=== PATIENT | female | born 1980 | race African-American/Black ===

== ENCOUNTER 2022-11-26 01:34 | Inpatient (IN) | payer BC, OTHER ==
[2022-11-26 04:08] VITALS: BMI 35.7
[2022-11-26] MEDS ORDERED: Dextrose 5% in Water 1,000 ML IV PRN (04:58)
[2022-11-26] MEDS ORDERED: Glucagon 1 MG/ML KIT IM PRN (04:58)
[2022-11-26] MEDS ORDERED: Ipratropium/Albuterol 3 ML NEB NEB PRN (04:58)
[2022-11-26] MEDS ORDERED: Dextrose 50% Abboject 50 ML SYRINGE SLOW IVP PRN (04:58)
[2022-11-26] MEDS ORDERED: Morphine 2 MG/ML VIAL SLOW IVP PRN (04:58)
[2022-11-26] MEDS ORDERED: hydrALAZINE 20 MG/ML VIAL SLOW IVP PRN (04:58)
[2022-11-26] MEDS: Sodium Chloride 0.9% 1,000 ML IV SCH ×3 (05:34→21:26)
[2022-11-26] MEDS: Acetaminophen 325 MG TAB PO SCH ×3 (05:40→18:34)
[2022-11-26] MEDS ORDERED: TETANUS, DIPHTHERIA TOX,ADULT (TDVAX) 0.5 ML VIAL IM ONE (06:00)
[2022-11-26 08:51] LABS: #Basophils 0.1 thou/uL (0.0-0.2); #Neutrophils 8.1 thou/uL (1.40-6.50); %Basophils 0.6 % (0.0-1.0); %Eosinophils 0.2 % (0.0-10.0); %Monocytes 8.1 % (0.0-10.0); %Neutrophils 63.9 % (42.0-75.0); Hematocrit 32.6 % (36.0-47.0); Hemoglobin 11.7 g/dL (12.0-16.0); Mean Corpuscular HGB CONC 35.9 g/dL (32.0-36.0); Mean Corpuscular Volume 80.9 fl (78.0-98.0); Mean Platelet Volume 9.2 fL (7.4-10.4); Platelet Count 262 10x3/uL (130-400); RBC Distribution Width 19.3 % (11.5-14.5); Red Blood Cell (RBC) Count 4.03 mill/uL (4.20-5.40); White Blood Cell (WBC) Count 12.6 10x3/uL (4.8-10.8)
[2022-11-26 09:12] LABS: Anion Gap 14 mmol/L (10-20); BUN (Urea Nitrogen) 10 mg/dL (7.0-18.7); Calc. Creatinine Clearance 166 mL/min (70-130); Calcium 7.9 mg/dL (7.8-10.44); Carbon Dioxide 19 mmol/L (22-29); Chloride 111 mmol/L (98-107); Estimated GFR 95; Glucose 83 mg/dL (70-105); Magnesium 1.6 mg/dL (1.6-2.6); Phosphorus 3.2 mg/dL (2.3-4.7); Potassium 3.6 mmol/L (3.5-5.1); Sodium 140 mmol/L (136-145)
[2022-11-26 09:18] LABS: INR-International Normal Ratio 1.2; PTT 26.5 sec (22.9-36.1); Prothrombin Time 15.7 sec (12.0-14.7)
[2022-11-26] MEDS: Ondansetron ODT 4 MG TAB PO PRN ×3 (09:28→21:26)
[2022-11-26] MEDS: Famotidine 20 MG TAB PO SCH ×2 (09:28→20:19)
[2022-11-26] MEDS: traMADol HCl 50 MG TAB PO PRN ×3 (09:28→21:25)
[2022-11-27] MEDS: Acetaminophen 325 MG TAB PO SCH ×3 (00:45→11:12)
[2022-11-27] MEDS: traMADol HCl 50 MG TAB PO PRN ×3 (03:19→15:37)
[2022-11-27 06:38] LABS: Phosphorus 2.2 mg/dL (2.3-4.7)
[2022-11-27] MEDS: Sodium Chloride 0.9% 1,000 ML IV SCH ×2 (06:39→15:38)
[2022-11-27] MEDS: Famotidine 20 MG TAB PO SCH (08:29)
[2022-11-27] MEDS: Ondansetron ODT 4 MG TAB PO PRN (09:25)
[2022-11-27 17:07] VITALS: BP 153/54; TEMP 98.4
== END 2022-11-27 17:25 | disposition home or self-care (01) | DRG 206 ==
LOC: IMCU/EMU 03:17 → OBSVTOIN 04:58 → SURG A 19:32
PROVIDERS: ADMIT Surgery; ATTEND Surgery
DX: S27.321A Contusion of lung, unilateral, initial encounter (principal); R04.2 Hemoptysis; V89.0XXA Person injured in unspecified motor-vehicle accident, nontraffic, initial encounter; K76.0 Fatty (change of) liver, not elsewhere classified; Z98.890 Other specified postprocedural states; S62.314A Displaced fracture of base of fourth metacarpal bone, right hand, initial encounter for closed fracture; I95.9 Hypotension, unspecified
CPT/HCPCS: 36415; 80048; 83735; 84100; 85025; 85610; 85730; 86850; 86900; 86901; 90714; J2272; J7050; Q0162

== ENCOUNTER 2024-10-29 12:21 | Emergency (ER) | payer BC, OTHER ==
[~2024-10-29 12:21] MED LIST: Iopamidol 370 76% 100 ML VIAL ONE
[2024-10-29] MEDS ORDERED: Orphenadrine Citrate 60 MG/2 ML VIAL ONE (12:55)
[2024-10-29 13:10] LABS: #Basophils 0.05 10x3/uL (0.0-0.2); #Eosinophils 0.13 10x3/uL (0.0-0.7); #Monocytes 0.51 10x3/uL (0.11-0.59); #Neutrophils 4.98 10x3/uL (1.40-6.50); %Basophils 0.6 % (0.0-1.0); %Eosinophils 1.6 % (0.0-10.0); %Lymphocytes 28.6 % (21.0-51.0); %Monocytes 6.4 % (0.0-10.0); %Neutrophils 62.5 % (42.0-75.0); Hematocrit 33.5 % (36.0-47.0); Hemoglobin 12.1 g/dL (12.0-16.0); Mean Corpuscular Hemoglobin 28.2 pg (27.0-31.0); Mean Corpuscular Volume 78.1 fL (78.0-98.0); Platelet Count 269 10x3/uL (130-400); Red Blood Cell (RBC) Count 4.29 mill/uL (4.20-5.40); White Blood Cell (WBC) Count 7.97 10x3/uL (4.8-10.8)
[2024-10-29 13:22] LABS: BHCG - Serum Negative (NEGATIVE); Pregs Control Background? CLEAR/WHITE (CLR/WHITE); Pregs Control Bar Appear? YES (CONTROL BAR)
[2024-10-29 13:33] LABS: ALT (SGPT) 10 U/L (Less than 34); AST (SGOT) 15 U/L (11-34); Albumin 3.8 g/dL (3.1-4.5); Alkaline Phosphatase 53 U/L (40-110); Anion Gap 10 mmol/L (10-20); BUN (Urea Nitrogen) 9 mg/dL (7.0-18.7); Bilirubin, Total 0.4 mg/dL (0.3-1.2); Calc. Creatinine Clearance 0 mL/min (70-130); Calcium 8.6 mg/dL (7.8-10.44); Carbon Dioxide 22 mmol/L (22-29); Chloride 108 mmol/L (98-107); Globulin 3.6 g/dL (2.4-3.5); Glucose 105 mg/dL (70-105); Lipase 28 U/L (8-78); Potassium 3.4 mmol/L (3.5-5.1); Sodium 137 mmol/L (136-145)
[2024-10-29] MEDS ORDERED: Acetaminophen 500 MG TAB ONE (14:56)
[2024-10-29] MEDS ORDERED: Ketorolac Tromethamine 30 MG (1 mL) VIAL ONE (14:57)
== END 2024-10-29 15:33 | disposition home or self-care (01) ==
LOC: ERS 12:21
DX: S13.4XXA Sprain of ligaments of cervical spine, initial encounter (principal); S83.92XA Sprain of unspecified site of left knee, initial encounter; S83.91XA Sprain of unspecified site of right knee, initial encounter; S43.402A Unspecified sprain of left shoulder joint, initial encounter; S43.401A Unspecified sprain of right shoulder joint, initial encounter; S33.5XXA Sprain of ligaments of lumbar spine, initial encounter; S90.32XA Contusion of left foot, initial encounter; W10.8XXA Fall (on) (from) other stairs and steps, initial encounter
CPT/HCPCS: 36415; 70450; 71260; 72125; 74177; 80053; 83690; 84703; 85025; 96374; 96375; J1885; J2270; J2360; J3010

== ENCOUNTER 2024-12-08 10:06 | Outpatient (CLI) | payer BC ==
[2024-12-08 10:51] LABS: #Basophils 0.05 10x3/uL (0.0-0.2); #Eosinophils 0.14 10x3/uL (0.0-0.7); #Monocytes 0.42 10x3/uL (0.11-0.59); #Neutrophils 4.04 10x3/uL (1.40-6.50); %Basophils 0.7 % (0.0-1.0); %Eosinophils 1.9 % (0.0-10.0); %Lymphocytes 35.6 % (21.0-51.0); %Monocytes 5.8 % (0.0-10.0); %Neutrophils 55.9 % (42.0-75.0); Hematocrit 36.5 % (36.0-47.0); Hemoglobin 12.7 g/dL (12.0-16.0); Mean Corpuscular Hemoglobin 27.2 pg (27.0-31.0); Mean Corpuscular Volume 78.2 fL (78.0-98.0); Platelet Count 320 10x3/uL (130-400); Red Blood Cell (RBC) Count 4.67 mill/uL (4.20-5.40); White Blood Cell (WBC) Count 7.24 10x3/uL (4.8-10.8)
[2024-12-08 11:07] LABS: ALT (SGPT) 10 U/L (Less than 34); AST (SGOT) 18 U/L (11-34); Albumin 3.8 g/dL (3.1-4.5); Alkaline Phosphatase 57 U/L (40-110); Anion Gap 11 mmol/L (10-20); BUN (Urea Nitrogen) 12 mg/dL (7.0-18.7); Bilirubin, Total 0.5 mg/dL (0.3-1.2); Calc. Creatinine Clearance 0 mL/min (70-130); Calcium 8.9 mg/dL (7.8-10.44); Carbon Dioxide 24 mmol/L (22-29); Chloride 107 mmol/L (98-107); Globulin 4.0 g/dL (2.4-3.5); Glucose 82 mg/dL (70-105); Potassium 3.2 mmol/L (3.5-5.1); Sodium 139 mmol/L (136-145)
== END 2024-12-08 10:07 | disposition home or self-care (01) ==
LOC: LABBT 10:06
PROVIDERS: ATTEND Surgery
DX: Z01.818 Encounter for other preprocedural examination (principal); K44.9 Diaphragmatic hernia without obstruction or gangrene; K22.10 Ulcer of esophagus without bleeding
CPT/HCPCS: 80053; 83036; 85025; 93005; 93010

== ENCOUNTER 2024-12-16 08:16 | Inpatient (IN) | payer BC ==
[2024-12-16] MEDS ORDERED: Rocuronium Bromide 10 MG/ML (10ML VIAL) ONE (08:59)
[2024-12-16] MEDS ORDERED: PROPOFOL 20 ML ONE ×2 (08:59→10:10)
[2024-12-16] MEDS ORDERED: Lidocaine 1% PF 5 ML VIAL ONE (08:59)
[2024-12-16] MEDS ORDERED: Heparin 5,000 UNITS/ML VIAL ONE (09:00)
[2024-12-16] MEDS ORDERED: Acetaminophen 500 MG TAB ONE (09:00)
[2024-12-16] MEDS ORDERED: Ketorolac Tromethamine 30 MG (1 mL) VIAL ONE (09:00)
[2024-12-16] MEDS ORDERED: CEFAZOLIN 2 GM VIAL ONE (09:00)
[2024-12-16] MEDS ORDERED: fentaNYL PF 100 MCG/2 ML SYRINGE ONE ×3 (10:10→12:30)
[2024-12-16] MEDS ORDERED: Bupivacaine 0.25% HCL 30 ML VIAL ONE (10:12)
[2024-12-16] MEDS ORDERED: PHENYLEPHRINE-NS 100 MCG/ML 10 ML SYRINGE ONE (10:56)
[2024-12-16] MEDS ORDERED: Ondansetron PF 4 MG/2 ML Vial ONE (12:33)
[2024-12-16] MEDS ORDERED: SUGAMMADEX SODIUM 200 MG/2 ML VIAL ONE (12:33)
[2024-12-16] MEDS ORDERED: Glucagon 1 MG/ML KIT IM PRN (13:28)
[2024-12-16] MEDS ORDERED: Ondansetron PF 4 MG/2 ML Vial IVP PRN (13:28)
[2024-12-16] MEDS ORDERED: diphenhydrAMINE 50 MG/ML VIAL IVP PRN (13:28)
[2024-12-16] MEDS ORDERED: Dextrose 50% Abboject 50 ML SYRINGE SLOW IVP PRN (13:28)
[2024-12-16] MEDS ORDERED: hydrALAZINE 20 MG/ML VIAL SLOW IVP PRN (13:28)
[2024-12-16 15:09] VITALS: BMI 37.9
[2024-12-16] MEDS: D5 1/2 NS w/20 mEq KCL 1,000 ML IV SCH (18:38)
[2024-12-16] MEDS: oxyCODONE 5 MG TAB PO PRN (20:39)
[2024-12-16] MEDS: Simethicone Chewable 80 MG TAB PO PRN (22:09)
[2024-12-17 05:42] LABS: #Basophils Less than 0.03 10x3/uL (0.0-0.2); #Eosinophils Less than 0.03 10x3/uL (0.0-0.7); #Monocytes 0.92 10x3/uL (0.11-0.59); #Neutrophils 8.00 10x3/uL (1.40-6.50); %Basophils 0.2 % (0.0-1.0); %Eosinophils 0.2 % (0.0-10.0); %Lymphocytes 20.3 % (21.0-51.0); %Monocytes 8.1 % (0.0-10.0); %Neutrophils 70.8 % (42.0-75.0); Hematocrit 29.0 % (36.0-47.0); Hemoglobin 10.0 g/dL (12.0-16.0); Mean Corpuscular Hemoglobin 27.2 pg (27.0-31.0); Mean Corpuscular Volume 79.0 fL (78.0-98.0); Platelet Count 231 10x3/uL (130-400); Red Blood Cell (RBC) Count 3.67 mill/uL (4.20-5.40); White Blood Cell (WBC) Count 11.29 10x3/uL (4.8-10.8)
[2024-12-17 06:13] LABS: Anion Gap 10 mmol/L (10-20); BUN (Urea Nitrogen) 11 mg/dL (7.0-18.7); Calc. Creatinine Clearance 176 mL/min (70-130); Calcium 8.0 mg/dL (7.8-10.44); Carbon Dioxide 22 mmol/L (22-29); Chloride 109 mmol/L (98-107); Glucose 115 mg/dL (70-105); Potassium 3.8 mmol/L (3.5-5.1); Sodium 137 mmol/L (136-145)
[2024-12-17] MEDS: Enoxaparin 40 MG (0.4 mL) SYRINGE SC SCH (08:07)
[2024-12-17] MEDS: Pantoprazole 40 MG VIAL IVP SCH (08:07)
[2024-12-17] MEDS ORDERED: NORGESTIMATE ETHINYL ESTRADIOL PO SCH (09:00)
[2024-12-17 12:30] VITALS: BP 127/85; TEMP 98.9
== END 2024-12-17 15:00 | disposition home or self-care (01) | DRG 327 ==
LOC: SDC 08:16 → SURG B 14:33
PROVIDERS: ADMIT Surgery; ATTEND Surgery
PROC: 0BQT4ZZ Repair Diaphragm, Percutaneous Endoscopic Approach (ICD-10-PCS; principal; 2024-12-16)
PROC: 0D164ZA Bypass Stomach to Jejunum, Percutaneous Endoscopic Approach (ICD-10-PCS; 2024-12-16)
PROC: 0DB64ZZ Excision of Stomach, Percutaneous Endoscopic Approach (ICD-10-PCS; 2024-12-16)
PROC: 8E0W4CZ Robotic Assisted Procedure of Trunk Region, Percutaneous Endoscopic Approach (ICD-10-PCS; 2024-12-16)
PROC: 3E033XZ Introduction of Vasopressor into Peripheral Vein, Percutaneous Approach (ICD-10-PCS; 2024-12-16)
DX: K44.9 Diaphragmatic hernia without obstruction or gangrene (principal); K22.10 Ulcer of esophagus without bleeding; K21.00 Gastro-esophageal reflux disease with esophagitis, without bleeding; Z79.899 Other long term (current) drug therapy; E66.01 Morbid (severe) obesity due to excess calories; Z68.38 Body mass index [BMI] 38.0-38.9, adult
CPT/HCPCS: 36415; 80048; 85025; J0169; J0665; J1100; J1644; J1650; J1885; J2470; J2704; J3480; S2900